=== PATIENT | male | born 1985 | race Two or more races ===

== ENCOUNTER 2022-11-24 10:17 | Emergency (ER) | payer SELFPAY ==
[~2022-11-24] VITALS: Ht 170.2 cm; Wt 72.7 kg
[2022-11-24 11:24] VITALS: BP 123/75
[2022-11-24] MEDS: KETOROLAC TROMETH 30 MG/ML 1ML VIAL IV ONE ×2 (12:12→12:13)
[2022-11-24] MEDS ORDERED: KETOROLAC TROMETH 30 MG/ML 1ML VIAL IM ONE (12:15)
[2022-11-24] MEDS ORDERED: NAPR-957 PO (12:16)
[2022-11-24] MEDS ORDERED: METH-1181 PO (12:16)
== END 2022-11-24 13:17 | disposition home or self-care (01) ==
LOC: ER 10:17 → EDBD 10:17 → ER 13:17
DX: M54.59 Other low back pain (principal); F15.90 Other stimulant use, unspecified, uncomplicated
CPT/HCPCS: 96372; 99283; J1885

== ENCOUNTER 2022-12-10 09:14 | Emergency (ER) | payer MEDICAID, OTHER ==
[~2022-12-10] VITALS: Ht 167.6 cm; Wt 64.0 kg
[~2022-12-10 09:14] MED LIST: METH-1181 PO; NAPR-957 PO
[2022-12-10 10:00] VITALS: BP 151/104
[2022-12-10] MEDS ORDERED: KETOROLAC TROMETH 60MG/2ML VIAL IM ONE (10:15)
[2022-12-10] MEDS ORDERED: BACL10TA PO (10:15)
[2022-12-10] MEDS ORDERED: IBUP-1456 PO (10:15)
== END 2022-12-10 10:28 | disposition home or self-care (01) ==
LOC: ER 09:14
DX: S16.1XXA Strain of muscle, fascia and tendon at neck level, initial encounter (principal); S46.911A Strain of unspecified muscle, fascia and tendon at shoulder and upper arm level, right arm, initial encounter; W22.8XXA Striking against or struck by other objects, initial encounter; Y93.89 Activity, other specified; Y92.89 Other specified places as the place of occurrence of the external cause; Y99.8 Other external cause status
CPT/HCPCS: 73030; 96372; 99283; J1885